=== PATIENT | female | born 1930 | race Caucasian/White ===

== ENCOUNTER 2017-01-29 00:02 | Inpatient (IN) | payer MEDICARE ==
[2017-01-29] MEDS ORDERED: cloNIDine 0.1 MG TAB ONE (01:05)
[2017-01-29] MEDS ORDERED: Nitroglycerin 2% Ointment 1 INCH/1 GM Packet ONE ×2 (01:05→01:12)
[2017-01-29 01:50] LABS: Troponin I Less than 0.010 ng/mL (< 0.028)
[2017-01-29] MEDS ORDERED: Acetaminophen 650 MG Suppository PR PRN (02:01)
[2017-01-29] MEDS ORDERED: Acetaminophen 325 MG TAB PO PRN (02:01)
--- NOTE | 2017-01-29 03:29 | HP ---
PRIMARY CARE PHYSICIAN: Jerrod Cardenas D.O. CHIEF COMPLAINT: Shortness of breath. HISTORY OF PRESENT ILLNESS: Ms. Velasquez is a pleasant 87-year-old lady who was seen at [facility] on 01/29/2017 after transfer from [facility]. She reports that over the last 2 days, she has been feeling short of breath. She reports that the sh ortness of breath has been gradually worsening. She reports shortness of breath with exertion. She denies orthopnea or paroxysmal nocturnal dyspnea. She denies any cough, fever, or chills. She repor ts leg swelling. She also reports that her abdomen has been getting distended over the last few week s. She denies any chest pain. She went to the emergency room at [facility]. There, she was diagnosed with new onset congestive heart failure and was transferred to this facility. REVIEW OF SYSTEMS: The following complete review of systems was negative, unless otherwise mentioned in the HPI or below: Constitutional: Weight loss or gain, sense of well-being, ability to conduct usual activities, exerc ise tolerance. Skin/Breast: Rash, itching, changes in hair growth or loss, nail changes, breast lumps, tenderness, swelling, nipple discharge. Eyes: Vision, double vision, tearing, blind spots, pain. ENT/Mouth: Headaches (location, time of onset, duration, precipitating factors), vertigo, lightheade dness, injury. Vision, double vision, tearing, blind spots, pain, nose bleeding, colds, obstruction, discharge, dental difficulties, gingival bleeding, dentures, neck stiffness, pain, tenderness, masses in thyroid or other areas. Cardiovascular: Precordial pain, substernal distress, palpitations, syncope, dyspnea on exertion, or thopnea, nocturnal paroxysmal dyspnea, edema, cyanosis, hypertension, heart murmurs, varicosities, ph lebitis, claudication. Respiratory: Pain, shortness of breath, wheezing, stridor, cough, hemoptysis, fever or night sweats. Gastrointestinal: Poor appetite, dysphagia, indigestion, abdominal pain, heartburn, eructation, naus ea, vomiting, hematemesis, jaundice, constipation, or diarrhea, abnormal stools (jose-colored, tarry, bloody, greasy, foul smelling), flatulence, hemorrhoids, recent changes in bowel habits. Genitourinary: Urgency, frequency, dysuria, nocturia, hematuria, polyuria, oliguria, unusual (or yenny nge in) color of urine, stones, hesitancy, change in size of stream, dribbling, acute retention or in continence, libido, potency. Musculoskeletal: Pain, swelling, redness or heat of muscles or joints, limitation, of motion, muscul ar weakness, atrophy, cramps. Neurologic/Psychiatric: Convulsions, paralyses, tremor, incoordination, paresthesias, difficulties w ith memory of speech, sensory or motor disturbances, or muscular coordination (ataxia, tremor), emoti onal problems, anxiety, depression, previous psychiatric care, unusual perceptions, hallucinations. Allergy/Immunologic: Skin rash, anemia, bleeding tendency, polydipsia, polyuria, intolerance to heat or cold. PAST MEDICAL HISTORY: Significant for coronary artery disease status post coronary artery bypass gra ft, sick sinus syndrome, status post pacemaker placement, hypertension, dyslipidemia, gastroesophagea l reflux disease, and anxiety disorder. PAST SURGICAL HISTORY: Significant for coronary artery bypass graft surgery, pacemaker placement, an d laminectomy. FAMILY HISTORY: No family history of premature coronary artery disease. SOCIAL HISTORY: The patient lives independently. She denies tobacco use, alcohol use or recreationa l drug use. CODE STATUS: I discussed her code status. She is FULL CODE. Her nephew Berhane is the surrogate me dical decision maker. ALLERGIES: PENICILLIN. CURRENT MEDICATIONS: Include omeprazole 40 mg 2 times a day, simvastatin 40 mg daily, potassium 10 m Eq daily, furosemide 20 mg as needed, aspirin 81 mg daily, alprazolam 0.5 mg as needed, Multaq 400 mg 2 times a day, losartan/hydrochlorothiazide 100/12.5 mg daily, Apresoline 25 mg 3 times a day, prami pexole 0.25 mg daily. PHYSICAL EXAMINATION: GENERAL: On examination, Ms. Velasquez is awake and alert, not in acute distress. VITAL SIGNS: Blood pressure is 165/68, pulse is 61. She is breathing at rate of 24 and saturating 9 6% on room air. She is afebrile. HEENT: Eyes: No scleral icterus, no conjunctival pallor. ENT: Moist mucosal membranes, no orophar yngeal erythema or exudates. NECK: She has jugular venous distention. No thyromegaly, trachea is midline. RESPIRATORY: Accessory muscles of breathing are not active. Chest wall movements are symmetric bila terally. Lung examination reveals bibasilar crackles. CARDIOVASCULAR: S1 and S2 are heard, regular. Peripheral pulses are palpable. No carotid bruit, no pericardial rub. ABDOMEN: Distended, nontender, bowel sounds heard, no hepatomegaly, no splenomegaly. NEUROLOGIC: Cranial nerves II-XII are intact, deep tendon reflexes are 2+. MUSCULOSKELETAL: Power is 5/5 in all 4 extremities. She has bilateral leg edema. SKIN: She has skin tags over the neck. PSYCHIATRIC: Normal mood, normal affect, patient is oriented to person, place, and time. LYMPHATIC: No cervical lymphadenopathy. LABORATORY DATA: Ms. Velasquez's labs and investigations were reviewed. I reviewed her electrocardiogra m, which shows electronic atrial paced rhythm, no ST changes to suggest an acute coronary syndrome. I also reviewed her chest x-ray, which shows pulmonary venous congestion. No pleural effusions. Lab oratory investigations show normal white count, normal hemoglobin, normal platelet count, normal sodi um, decreased potassium of 3.3, normal creatinine of 0.92, elevated blood urea nitrogen of 28, normal troponin I, elevated BNP of 588.5, normal liver profile. ASSESSMENT AND PLAN: Ms. Velasquez is a pleasant 87-year-old lady who was seen at [facility] on 01/29/2017. Her problem list includes: 1. Shortness of breath: Most likely secondary to congestive heart failure. 2. Congestive heart failure: She does not have a history of congestive heart failure. We will admi t her to the hospital and treat with diuretics. We will monitor on telemetry. We will consult Cardi ology Service. We will check 2D echocardiogram and interrogate her pacemaker. 3. Hypokalemia: Replace potassium. 4. Hypertension: Monitor vital signs, titrate antihypertensives as needed. 5. Gastroesophageal reflux disease: Appears stable. Many thanks for allowing me to participate in your patient's care. Please feel free to contact me wi th any questions or concerns. LEVEL OF RISK: High. LEVEL OF COMPLEXITY: High.
[2017-01-29] MEDS ORDERED: Furosemide 20 MG TAB PO PRN (04:33)
[2017-01-29] MEDS ORDERED: ALPRAZolam 0.5 MG TAB PO PRN (04:33)
[2017-01-29 05:22] LABS: #Basophils 0.1 thou/uL (0.0-0.2); #Eosinphils 0.2 thou/uL (0.0-0.7); #Lymphocytes 2.5 thou/uL (1.20-3.40); #Monocytes 0.8 thou/uL (0.11-0.59); #Neutrophils 5.5 thou/uL (1.40-6.50); %Basophils 0.7 % (0.0-1.0); %Eosinophils 1.8 % (0.0-10.0); %Lymphocytes 28.3 % (21.0-51.0); %Monocytes 8.4 % (0.0-10.0); Hematocrit 36.5 % (36.0-47.0); Mean Platelet Volume 7.9 fL (7.4-10.4); Red Blood Cell (RBC) Count 3.91 mill/uL (4.20-5.40)
[2017-01-29 05:46] LABS: Troponin I 0.014 ng/mL (< 0.028)
[2017-01-29 05:55] LABS: Anion Gap 12 mmol/L (10-20); BUN (Urea Nitrogen) 25 mg/dL (9.8-20.1); Calc. Creatinine Clearance 0 mL/min (70-130); Calcium 9.3 mg/dL (7.8-10.44); Carbon Dioxide 29 mmol/L (23-31); Chloride 104 mmol/L (98-107); Estimated GFR-MDRD 67
[2017-01-29] MEDS: Potassium Chloride 20 MEQ TAB PO SCH ×2 (06:28→10:09)
[2017-01-29 07:28] VITALS: BMI 28.3
[2017-01-29] MEDS: Pramipexole Di-HCl 0.25 MG TAB PO SCH (08:40)
[2017-01-29] MEDS: Dronedarone HCl 400 MG TAB PO SCH ×2 (08:40→17:16)
[2017-01-29] MEDS: Furosemide 40 MG/4 ML VIAL SLOW IVP SCH ×2 (08:40→14:43)
[2017-01-29] MEDS: hydrALAZINE 25 MG TAB PO SCH ×3 (08:41→20:34)
[2017-01-29] MEDS: Losartan Potassium 25 MG TAB PO SCH (08:41)
[2017-01-29] MEDS: Hydrochlorothiazide 25 MG TAB PO SCH (08:41)
[2017-01-29] MEDS: Aspirin 81 mg Enteric Coated Tablet PO SCH (08:41)
[2017-01-29] MEDS: Sodium Chloride 0.9% 10 ML ONE ×2 (08:48→20:35)
[2017-01-29] MEDS: Enoxaparin Sodium 40 MG/0.4 ML SYRINGE SC SCH (08:48)
--- NOTE | 2017-01-29 10:08 | PDOC.PN ---
- Subjective Encounter Start Date: 01/29/17 Encounter Start Time: 10:06 Ms. Velasquez was seen today in follow-up of CHF exacerbation. She says she has gotten rid of quite a bit of fluid last night, and is breathing better. She never experienced chest pain. - Objective Resuscitation Status: Resuscitation Status FULL:Full Resuscitation MAR Reviewed: Yes Vital Signs & Weight: Vital Signs (12 hours) Temp Pulse Resp BP Pulse Ox 01/29/17 07:38 97.9 F 75 20 176/73 H 95 01/29/17 03:01 98.3 F 60 18 95 01/29/17 02:40 97.7 F 66 18 166/67 H 97 Weight Weight 150 lb 3.2 oz Result Diagrams: 01/29/17 04:26 01/29/17 04:26 Phys Exam - Physical Examination HEENT: PERRLA Respiratory: no wheezing, no rales, clear to auscultation bilateral Cardiovascular: RRR, no significant murmur, no rub Gastrointestinal: soft, non-tender, positive bowel sounds Musculoskeletal: edema present trace pedal edema Dx/Plan (1) Acute exacerbation of CHF (congestive heart failure) Code(s): I50.9 - HEART FAILURE, UNSPECIFIED Status: Acute (2) Coronary artery disease Code(s): I25.10 - ATHSCL HEART DISEASE OF [place] CORONARY ARTERY W/O ANG PCTRS Status: Acute (3) Hypertension Code(s): I10 - ESSENTIAL (PRIMARY) HYPERTENSION Status: Acute - Plan * Acute CHF exacerbation- she has diuresed well overnight. Echo is pending * Await Cardiology input as well * HTN- blood pressure - continue her home medications, and will monitor the trend * CAD- stable * Hypokalemia- replace K+.
--- NOTE | 2017-01-29 14:14 | CON ---
DATE OF CONSULTATION: 01/29/2017 REASON FOR CONSULTATION: Acute on chronic congestive heart failure. PRIMARY CARE PROVIDER: Dr. Quintana. HISTORY OF PRESENT ILLNESS: Ms. Velasquez is a very pleasant 87-year-old woman, who states over the last several days, she has had increased history of shortness of breath. Shortness of breath has been no shobha over the last few days. She also complains of lower extremity edema in addition to abdominal dis tention. No chest pain or pressure noted. PAST MEDICAL HISTORY: 1. CAD status post bypass surgery. 2. Sick sinus syndrome status post pacemaker. 3. Hypertension. 4. Hyperlipidemia. 5. Acid reflux. 6. Anxiety disorder. PAST SURGICAL HISTORY: Laminectomy. HOME MEDICATIONS: Include, potassium, simvastatin, tramadol, meloxicam, losartan/hydrochlorothiazide , Lasix, Multaq, atenolol, aspirin, and Xanax. ALLERGIES: PENICILLIN. SOCIAL HISTORY: No current tobacco or alcohol use. REVIEW OF SYSTEMS: A 10-point review of systems is reviewed and as above, otherwise negative. PHYSICAL EXAMINATION: GENERAL: The patient is a pleasant female who is in no acute distress. The patient appears her stat ed age. VITAL SIGNS: Blood pressure 140/65, pulse 61, and temperature 98.1. NEUROLOGIC: The patient is alert and oriented times 3 with no focal neurologic deficits. HEENT: Sclerae without icterus. Mouth has moist mucous membranes with normal pallor. NECK: No JVD. Carotid upstroke brisk. No bruits bilaterally. LUNGS: Crackles noted bilaterally. BACK: No scoliosis or kyphosis. CARDIAC: Regular rate and rhythm with normal S1 and S2. No S3 or S4 noted. No significant rubs, murmurs, thrills, or gallops noted throughout the precordium. PMI is not displa geovany. There is no parasternal heave. ABDOMEN: Soft, nontender, nondistended. No peritoneal signs present. No hepatosplenomegaly. No abn ormal striae. EXTREMITIES: 2+ femoral and 2+ dorsalis pedis pulses. No cyanosis or clubbing. 1-2+ pitting edema. SKIN: No gross abnormalities. PERTINENT LABORATORY DATA: Hemoglobin 12.0, potassium 2.9, creatinine 0.81. EKG shows paced rhythm. IMPRESSION: 1. Acute on chronic diastolic heart failure. 2. Coronary artery disease. 3. Status post bypass surgery. RECOMMENDATIONS: 1. Review echo. 2. Continue Lasix. 3. Routing Clerk on dietary indiscretion. 4. Interrogate pacemaker. 5. Continue Lasix IV as prescribed.
[2017-01-29] MEDS: Potassium Chloride 10 MEQ TAB PO PRN (14:43)
[2017-01-29] MEDS ORDERED: Atorvastatin Calcium 20 MG TAB PO SCH (21:00)
[2017-01-30] MEDS: Furosemide 40 MG/4 ML VIAL SLOW IVP SCH ×2 (05:31→15:54)
[2017-01-30 06:54] LABS: Anion Gap 13 mmol/L (10-20); BUN (Urea Nitrogen) 34 mg/dL (9.8-20.1); Calc. Creatinine Clearance 31 mL/min (70-130); Calcium 8.9 mg/dL (7.8-10.44); Carbon Dioxide 27 mmol/L (23-31); Chloride 104 mmol/L (98-107); Estimated GFR-MDRD 38
[2017-01-30] MEDS ORDERED: Sodium Chloride 0.9% 10 ML ONE (07:22)
[2017-01-30] MEDS: Dronedarone HCl 400 MG TAB PO SCH (08:08)
[2017-01-30] MEDS: Aspirin 81 mg Enteric Coated Tablet PO SCH (08:10)
[2017-01-30] MEDS: Enoxaparin Sodium 40 MG/0.4 ML SYRINGE SC SCH (08:10)
[2017-01-30] MEDS: Hydrochlorothiazide 25 MG TAB PO SCH (08:11)
[2017-01-30] MEDS: Potassium Chloride 10 MEQ TAB PO PRN (08:12)
[2017-01-30] MEDS: Losartan Potassium 25 MG TAB PO SCH (08:12)
[2017-01-30] MEDS: Pramipexole Di-HCl 0.25 MG TAB PO SCH (08:14)
--- NOTE | 2017-01-30 09:03 | PDOC.PN ---
- Subjective Encounter Start Date: 01/30/17 Encounter Start Time: 09:01 Ms. Velasquez was seen today in follow-up of CHF exacerbation. She says she is breathing better and has no complaints. She admits to a little bit of dietary indiscretion. - Objective Resuscitation Status: Resuscitation Status FULL:Full Resuscitation MAR Reviewed: Yes Vital Signs & Weight: Vital Signs (12 hours) Temp Pulse Resp BP Pulse Ox 01/30/17 07:58 98.2 F 61 20 139/64 97 01/30/17 04:00 98.6 F 62 18 112/56 L Weight Weight 152 lb 8 oz I&O: 01/29/17 01/30/17 01/31/17 06:59 06:59 06:59 Intake Total 1190 Output Total 1500 Balance -310 Result Diagrams: 01/29/17 04:26 01/30/17 05:05 Phys Exam - Physical Examination HEENT: PERRLA Respiratory: no wheezing, no rales, no rhonchi, clear to auscultation bilateral Cardiovascular: RRR, no significant murmur Gastrointestinal: soft, non-tender, positive bowel sounds Musculoskeletal: edema present trace pedal edema Dx/Plan (1) Acute exacerbation of CHF (congestive heart failure) Code(s): I50.9 - HEART FAILURE, UNSPECIFIED Status: Acute (2) Coronary artery disease Code(s): I25.10 - ATHSCL HEART DISEASE OF [place] CORONARY ARTERY W/O ANG PCTRS Status: Acute (3) Hypertension Code(s): I10 - ESSENTIAL (PRIMARY) HYPERTENSION Status: Acute - Plan * Acute Diastolic heart failure- patient is clinically improved. Her volume status has improved * Echo results noted, patient has preserved LV- EF * Sodium intake was discussed, as well as monitoring fluid intake * Further recommendations as per Cardiology * HTN- blood pressure is stable * CAD- stable * Continue to replace K+ * Possible home soon.
[2017-01-30] MEDS ORDERED: Potassium Chloride 20 MEQ TAB PO SCH (09:15)
[2017-01-30] MEDS: hydrALAZINE 25 MG TAB PO SCH ×2 (09:59→15:54)
[2017-01-30 15:44] VITALS: BP 146/67; TEMP 97.9
--- NOTE | 2017-01-30 16:46 | PDOC.CTH ---
Cardiology Progress Note - Subjective She is doing well. Breathing at baseline. - Objective Vital Signs Temp Pulse Pulse Pulse Resp BP BP 01/30/17 15:43 97.9 F 64 15 01/30/17 12:15 98.1 F 62 18 01/30/17 09:59 60 108/52 L 01/30/17 09:55 88 60 136/63 01/30/17 07:58 98.2 F 61 20 BP BP BP Pulse Ox Pulse Ox Pulse Ox 01/30/17 15:43 146/67 H 94 L 01/30/17 12:15 100/53 L 97 01/30/17 09:59 01/30/17 09:55 108/52 L 96 97 01/30/17 07:58 139/64 97 Weight 152 lb 8 oz 01/29/17 01/30/17 01/31/17 06:59 06:59 06:59 Intake Total 1190 Output Total 1500 Balance -310 - Physical Examination General/Neuro: alert & oriented x3, NAD Neck: no JVD present Lungs: CTA, unlabored respirations Heart: RRR Abdomen: NT/ND Extremities: + edema B (none) - Telemetry Telemetry Rhythm: NSR - Labs Result Diagrams: 01/29/17 04:26 01/30/17 05:05 Troponin/CKMB CK-MB (CK-2) 2.4 ng/mL (0-6.6) 01/29/17 01:16 Troponin I 0.014 ng/mL (< 0.028) 01/29/17 04:26 - Assessment/Plan 1. Acute on chronic diastolic dysfunction. 2. CAD 3. S/P CABG PLAN: - July discharge home. - Follow up with Dr. Quintana as previously scheduled.
--- NOTE | 2017-01-30 23:32 | DIS ---
PRIMARY CARE PHYSICIAN: Dr. Kevin Cardenas. DATE OF ADMISSION: 01/29/2017 DATE OF DISCHARGE: 01/30/2017 DISCHARGE DISPOSITION: Home. PRIMARY DISCHARGE DIAGNOSES: 1. Acute diastolic heart failure. 2. History of coronary artery disease. 3. Hypertension. 4. Dyslipidemia. 5. Gastroesophageal reflux disease. 6. Sick sinus syndrome. DISCHARGE MEDICATIONS: There is no significant change in her medications. She is to continue Zocor 40 mg at bedtime, pramipexole 0.25 mg daily, Klor-Con 10 mEq daily, omeprazole 20 mg twice a day, [place]/hydrochlorothiazide one tablet daily, Apresoline 25 mg t.i.d., furosemide 20 mg daily, Multaq 4 00 mg twice a day, aspirin 81 mg daily, and alprazolam 0.5 mg at bedtime as needed. PROCEDURES DONE DURING ADMISSION: The patient had an echocardiogram in which the ejection fraction w as estimated at 50% to 55%. There was some E to A flow reversal suggestive of diastolic dysfunction. CODE STATUS: FULL CODE. ALLERGIES: PENICILLIN. HOSPITAL COURSE: Ms. Velasquez is a pleasant 87-year-old female who was admitted with respiratory distre ss. She was found to be volume overloaded as a result of diastolic dysfunction. This was determined by echocardiogram. She was seen by Cardiology during her hospital stay and there was no recommended change in medications. She was instructed to monitor her weight and get a digital scale and if her weight increased significantly then she was to give herself an additional Lasix. She was also recomm ended to follow up in the Heart Failure Clinic. At the time of discharge, the patient was doing much better, ambulating without difficulty and without any complaints and is subsequently being discharge d home.
== END 2017-01-30 16:26 | disposition home or self-care (01) | DRG 293 ==
LOC: ERS 00:02 → 2NO 01:07
PROVIDERS: ADMIT Internal Medicine; ATTEND Internal Medicine
DX: I11.0 Hypertensive heart disease with heart failure (principal); I49.5 Sick sinus syndrome; Z95.1 Presence of aortocoronary bypass graft; I25.10 Atherosclerotic heart disease of native coronary artery without angina pectoris; I50.33 Acute on chronic diastolic (congestive) heart failure; Z95.0 Presence of cardiac pacemaker; E78.5 Hyperlipidemia, unspecified; K21.9 Gastro-esophageal reflux disease without esophagitis; F41.9 Anxiety disorder, unspecified; E87.6 Hypokalemia; Z88.0 Allergy status to penicillin
CPT/HCPCS: 36415; 80048; 82553; 84484; 85025; 93306; 93798; 99285; A4216; J1650; J1940

== ENCOUNTER 2017-10-25 16:03 | Inpatient (IN) | payer MEDICARE ==
[2017-10-25 17:19] LABS: ALT (SGPT) 14 U/L (8-55); AST (SGOT) 12 U/L (5-34); Albumin 4.1 g/dL (3.4-4.8); Alkaline Phosphatase 89 U/L (40-150); Anion Gap 13 mmol/L (10-20); BUN (Urea Nitrogen) 57 mg/dL (9.8-20.1); Bilirubin, Total 0.4 mg/dL (0.2-1.2); Calc. Creatinine Clearance 0 mL/min (70-130); Carbon Dioxide 17 mmol/L (23-31); Chloride 113 mmol/L (98-107); Estimated GFR-MDRD 27; Glucose 87 mg/dL (83-110); Protein, Total 7.1 g/dL (6.0-8.3); Sodium 136 mmol/L (136-145)
[2017-10-25 17:25] LABS: Potassium 6.6 mmol/L (3.5-5.1)
--- NOTE | 2017-10-25 19:29 | HP ---
DATE OF ADMISSION: 10/25/2017 PRIMARY CARE PHYSICIAN: Listed as Jerrod Cardenas D.O. TIME OF SERVICE: 1700 CHIEF COMPLAINT: Weakness. HISTORY OF PRESENT ILLNESS: Ms. Velasquez is a pleasant 87-year-old female with a history of coronary ar dennys disease status post WI in the past, CHF with pacemaker placement, GERD, hyperlipidemia and hyper tension. She presented to an outside Emergency Department for what amounts to an acute onset of weak ness. The patient today went outside to turn her water sprinkler off and just felt like her legs are getting weak. She just had to sit down on the grass. She denies any syncope or presyncope. No diz ziness or vertigo. No loss of consciousness, no injury. She weighs herself every morning after shahrzad g to the restroom. She normally weighs 144-145, but today weighed 141 and has felt fairly weak and i ncreased in frequency for the last 3 days. Workup in the outside Emergency Department showed a creatinine elevated and a potassium of 6.2. She was subsequently transferred to our facility for further workup and evaluation. The patient arrived in our Emergency Department, vitals were okay. Repeat potassium was 6.6, creatin ine 1.75. Workup in 01/2017 showed a creatinine of 0.8 and 1.33. She denies any chest pain or shortness of breath. No nausea or vomiting. No diarrhea or constipatio n. No other complaints. PAST MEDICAL HISTORY: 1. Coronary artery disease. 2. Hypertension. 3. Hyperlipidemia, status post pacemaker placement. 4. Chronic kidney disease stage 2. 5. Chronic systolic congestive heart failure. HOME MEDICATIONS: 1. Xanax 0.25 mg p.o. p.r.n. anxiety. 2. Aspirin 81 mg daily. 3. Clonidine 0.1 mg p.o. p.r.n. 4. Atenolol 100 mg p.o. daily. 5. Omeprazole 20 mg p.o. daily. 6. Pramipexole 0.25 mg p.o. daily. 7. Multaq 400 mg p.o. b.i.d. 8. Apresoline 50 mg p.o. t.i.d. 9. Pravastatin 20 mg p.o. at bedtime. 10. Losartan 50 mg p.o. daily. 11. Aldactone 50 mg daily. 12. Spironolactone 25 mg daily. 13. Lasix 20 mg daily. ALLERGIES: PENICILLIN caused a rash long time ago. SOCIAL HISTORY: Negative for alcohol, tobacco or drugs. FAMILY HISTORY: Negative for clotting or bleeding disorder. No immune dysfunction. PAST SURGICAL HISTORY: Includes back surgery, right knee replacement, pacemaker implantation, mitchell ry artery bypass grafting x3 vessels remotely. REVIEW OF SYSTEMS: All systems reviewed and negative except as stated as per HPI. PHYSICAL EXAMINATION: VITAL SIGNS: Temperature current 98.9, pulse 60, blood pressure 136/54, respiratory rate 20, O2 sat 97% on room air. GENERAL: She is awake. She is alert. She is oriented x3. Well-developed, well-nourished, thin bhumi earing white female, appears to be in no acute distress. HEENT: Normocephalic, atraumatic. Pupils equal, round and reactive to light bilaterally. Mucous me mbranes are moist. No visible lesions. No thrush. NECK: Supple. She has no lymphadenopathy, JVD or thyromegaly. LUNGS: Clear. She has good air movement. Symmetrical chest excursion. No wheezes, no rales, no rh onchi. CARDIOVASCULAR: She has a normal S1, S2. She has no S3 or S4. She has a 2-3/6 systolic ejection mu rmur, best heard at the left upper sternal border. ABDOMEN: Soft. It is nontender, nondistended. No CVA tenderness. No suprapubic tenderness. EXTREMITIES: No cyanosis, no clubbing, no edema. Cannot palpate distal pulses. Feet are warm. SKIN: Warm, moist and well perfused. Capillary refill less than 2 seconds. MUSCULOSKELETAL: Normal to inspection. Large joints appear normal. There is no evidence of inflamm ation or palpable effusion. NEUROLOGIC: Cranial nerves II-XII are grossly intact. She has no focal neurologic deficit. LABORATORY DATA: Sodium is 136, potassium 6.6 here, chloride 113, bicarbonate 17, BUN 57, creatinine 1.75, glucose of 87, calcium 9.0. Liver functions completely within normal limits. CBC showed a white count of 13.0, hemoglobin of 11.7, hematocrit 31.3 and platelet count is 213,000 w ith a fairly normal differential. Urinalysis was normal. IMAGING STUDIES: None. ASSESSMENT AND PLAN: 1. Acute kidney injury, likely secondary to dehydration. We will continue IV fluids at 125 per hour . 2. Hyperkalemia secondary to acute kidney injury. She did receive glucose plus insulin, neb treatme nts, EKG was negative for changes, so did not receive calcium gluconate. Potassium here is slightly higher. Continue IV fluids and ilan with Lasix. We will also give her some Kayexalate. Repeat lab s in the morning. 3. Hypertension, essential. We will hold home medications at present. 4. Acute kidney injury. We will add p.r.n. medicines as needed. 5. Hyperlipidemia. Continue home medications. 6. History of coronary artery disease, status post myocardial infarction and coronary artery bypass graft in the past, currently asymptomatic. We will trend out her cardiac biomarkers.
[2017-10-25] MEDS ORDERED: Ondansetron HCl/PF 4 MG/2 ML Vial IVP PRN (20:19)
[2017-10-25] MEDS ORDERED: Acetaminophen 650 MG Suppository PR PRN (20:19)
[2017-10-25] MEDS ORDERED: Acetaminophen 325 MG TAB PO PRN (20:19)
[2017-10-25] MEDS ORDERED: Ondansetron ODT 4 MG TAB PO PRN (20:19)
[2017-10-25] MEDS ORDERED: Enoxaparin Sodium 30 MG/0.3 ML SYRINGE SC SCH (20:30)
[2017-10-25] MEDS ORDERED: Famotidine 20 MG TAB PO SCH ×2 (21:00→23:15)
[2017-10-25 22:02] VITALS: BMI 26.6
[2017-10-25] MEDS ORDERED: cloNIDine 0.1 MG TAB PO PRN (23:02)
[2017-10-25] MEDS ORDERED: ALPRAZolam 0.25 MG TAB PO PRN (23:02)
[2017-10-25] MEDS ORDERED: Atenolol 50 MG TAB PO SCH (23:15)
[2017-10-25] MEDS ORDERED: Pravastatin Sodium 20 MG TAB PO SCH (23:15)
[2017-10-25] MEDS ORDERED: Dronedarone HCl 400 MG TAB PO SCH (23:15)
[2017-10-25] MEDS ORDERED: hydrALAZINE 25 MG TAB PO SCH (23:15)
[2017-10-25 23:48] LABS: Potassium 6.7 mmol/L (3.5-5.1)
[2017-10-25] MEDS ORDERED: Calcium Gluconate 4.6 MEQ in Sodium Chloride 0.9% 100 ML IVPB SCH (23:54)
[2017-10-25] MEDS ORDERED: Dextrose 50% Abboject 50 ML SYRINGE SLOW IVP PRN (23:55)
[2017-10-26] MEDS: Sodium Chloride 0.9% 1,000 ML IV SCH ×5 (00:38→17:42)
[2017-10-26] MEDS: Albuterol Sulfate 1.25 MG/3 ML NEB NEB SCH ×3 (01:18→03:45)
[2017-10-26 05:39] LABS: #Eosinphils 0.1 thou/uL (0.0-0.7); #Lymphocytes 2.6 thou/uL (1.20-3.40); #Monocytes 0.6 thou/uL (0.11-0.59); %Basophils 0.4 % (0.0-1.0); %Eosinophils 1.2 % (0.0-10.0); %Lymphocytes 24.6 % (21.0-51.0); %Monocytes 5.7 % (0.0-10.0); Hemoglobin 10.8 g/dL (12.0-16.0); Mean Corpuscular HGB CONC 33.8 g/dL (32.0-36.0); Mean Corpuscular Volume 94.7 fL (78.0-98.0); Mean Platelet Volume 7.4 fL (7.4-10.4); Platelet Count 190 thou/uL (130-400); RBC Distribution Width 12.6 % (11.5-14.5); Red Blood Cell (RBC) Count 3.38 mill/uL (4.20-5.40); White Blood Cell (WBC) Count 10.4 thou/uL (4.8-10.8)
[2017-10-26 05:58] LABS: Anion Gap 12 mmol/L (10-20); BUN (Urea Nitrogen) 47 mg/dL (9.8-20.1); Calc. Creatinine Clearance 28 mL/min (70-130); Carbon Dioxide 17 mmol/L (23-31); Chloride 117 mmol/L (98-107); Estimated GFR-MDRD 36; Glucose 91 mg/dL (83-110); Potassium 5.7 mmol/L (3.5-5.1); Sodium 140 mmol/L (136-145)
[2017-10-26] MEDS: Dronedarone HCl 400 MG TAB PO SCH ×2 (08:09→18:08)
[2017-10-26] MEDS: hydrALAZINE 25 MG TAB PO SCH ×3 (08:09→21:59)
[2017-10-26] MEDS: Aspirin 81 mg Enteric Coated Tablet PO SCH (08:09)
[2017-10-26] MEDS: Furosemide 20 MG TAB PO SCH (08:10)
[2017-10-26] MEDS: Pramipexole Di-HCl 0.25 MG TAB PO SCH (08:12)
--- NOTE | 2017-10-26 10:37 | PRG ---
DATE OF SERVICE: 10/26/2017 SUBJECTIVE: Ms. Velasquez was admitted yesterday with dehydration and hyperkalemia. The patient has a history of coronary disease with previous bypass surgery and severe hypertension, w hich has been difficult to control. She received fluids. She is off the angiotensin receptor radha and the spironolactone is feeling b mihai today. OBJECTIVE: VITAL SIGNS: Her blood pressure 130/80, pulse 65, regular. LUNGS: Clear. CARDIAC: Normal S1, normal S2. ABDOMEN: Soft, nontender. EXTREMITIES: No edema. LABORATORY DATA: Potassium is 5.7, down from 6.7. EKG shows atrial paced ventricular sensed rhythm. ASSESSMENT: 1. Hypertension, essential with low blood pressure yesterday related to volume depletion. 2. Renal failure, resolving. Creatinine has gone from 1.82 down to 1.39. 3. Hyperkalemia, improving. 4. Coronary artery disease, previous bypass. 5. Pacemaker functioning normally. PLAN: 1. Agree with holding the losartan and spironolactone. In fact, would stop the spironolactone. 2. Reasonable to resume losartan as an outpatient 50 mg a day and to recheck potassium as an outpati ent. Otherwise, we will likely be difficult to control blood pressure. 3. She is continuing on a beta radha. 4. She also has paroxysmal atrial fibrillation well controlled with Multaq.
--- NOTE | 2017-10-26 15:18 | PDOC.PN ---
- Subjective Encounter Start Date: 10/26/17 Encounter Start Time: 14:00 Pt feeling better, no SOb, no N/V/d/C. Iv infiltrated at 0700 todfay, IV fluids have been opff pending IV replacement No F/C. no CP all systems reviewed and neg x as above - Objective Resuscitation Status: Resuscitation Status DNR:Do Not Resuscitate MAR Reviewed: Yes Vital Signs & Weight: Vital Signs (12 hours) Temp Pulse Pulse Pulse Resp BP BP 10/26/17 14:39 63 151/69 H 10/26/17 12:18 77 122/60 10/26/17 11:23 97.9 F 63 17 10/26/17 09:02 63 65 135/64 10/26/17 08:09 65 130/81 10/26/17 08:00 98.4 F 65 18 10/26/17 03:45 65 18 BP BP Pulse Ox Pulse Ox 10/26/17 14:39 10/26/17 12:18 137/62 97 10/26/17 11:23 141/64 H 98 10/26/17 09:02 162/64 H 10/26/17 08:09 10/26/17 08:00 10/26/17 03:45 94 L Weight Weight 141 lb 3.2 oz I&O: 10/25/17 10/26/17 10/27/17 06:59 06:59 06:59 Intake Total 504 480 Output Total 450 Balance 54 480 Result Diagrams: 10/26/17 05:10 10/26/17 05:10 Phys Exam - Physical Examination Constitutional: NAD HEENT: PERRLA, moist MMs, sclera anicteric, oral pharynx no lesions Neck: no nodes, no JVD, supple, full ROM Respiratory: no wheezing, no rales, no rhonchi, clear to auscultation bilateral Cardiovascular: RRR, no significant murmur, no rub Gastrointestinal: soft, non-tender, no distention, positive bowel sounds Musculoskeletal: edema present Neurological: non-focal, normal sensation, moves all 4 limbs Lymphatic: no nodes Psychiatric: normal affect, A&O x 3 Skin: no rash, normal turgor, cap refill <2 seconds Dx/Plan (1) Hyperkalemia Code(s): E87.5 - HYPERKALEMIA Status: Acute (2) JOHAN (acute kidney injury) Code(s): N17.9 - ACUTE KIDNEY FAILURE, UNSPECIFIED Status: Acute (3) Dehydration Code(s): E86.0 - DEHYDRATION Status: Acute (4) Chronic systolic CHF (congestive heart failure) Code(s): I50.22 - CHRONIC SYSTOLIC (CONGESTIVE) HEART FAILURE Status: Chronic (5) Coronary artery disease Code(s): I25.10 - ATHSCL HEART DISEASE OF [place] CORONARY ARTERY W/O ANG PCTRS Status: Chronic Qualifiers: Coronary Disease-Associated Artery/Lesion type: [place] artery [place] vs. transplanted heart: [place] heart Associated angina: without angina Qualified Code(s): I25.10 - Atherosclerotic heart disease of [place] coronary artery without angina pectoris (6) Hypertension Code(s): I10 - ESSENTIAL (PRIMARY) HYPERTENSION Status: Chronic Qualifiers: Hypertension type: essential hypertension Qualified Code(s): I10 - Essential (primary) hypertension - Plan cont current plan of care, plan discussed w/ family, PT/OT * .recheck BMP, replace IV fluids and lytes as needed, AM labs. change ot admit inpatient, anticipate discharg ein AM. * * Cr better, K+ down to 5.7
[2017-10-26 15:34] LABS: Anion Gap 13 mmol/L (10-20); BUN (Urea Nitrogen) 41 mg/dL (9.8-20.1); Calc. Creatinine Clearance 28 mL/min (70-130); Calcium 8.6 mg/dL (7.8-10.44); Carbon Dioxide 17 mmol/L (23-31); Chloride 112 mmol/L (98-107); Estimated GFR-MDRD 36; Glucose 128 mg/dL (83-110); Potassium 5.2 mmol/L (3.5-5.1); Sodium 137 mmol/L (136-145)
[2017-10-26] MEDS ORDERED: Pravastatin Sodium 20 MG TAB PO SCH (21:00)
[2017-10-26] MEDS ORDERED: Atenolol 50 MG TAB PO SCH (21:00)
[2017-10-27] MEDS: Sodium Chloride 0.9% 1,000 ML IV SCH (04:13)
[2017-10-27 04:54] LABS: #Basophils 0.1 thou/uL (0.0-0.2); #Eosinphils 0.1 thou/uL (0.0-0.7); #Lymphocytes 2.4 thou/uL (1.20-3.40); #Monocytes 0.6 thou/uL (0.11-0.59); #Neutrophils 6.7 thou/uL (1.40-6.50); %Basophils 0.6 % (0.0-1.0); %Eosinophils 1.5 % (0.0-10.0); %Lymphocytes 23.7 % (21.0-51.0); %Monocytes 6.4 % (0.0-10.0); %Neutrophils 67.8 % (42.0-75.0); Hemoglobin 10.7 g/dL (12.0-16.0); Mean Corpuscular HGB CONC 33.7 g/dL (32.0-36.0); Mean Corpuscular Hemoglobin 31.9 pg (27.0-31.0); Mean Corpuscular Volume 94.9 fL (78.0-98.0); Mean Platelet Volume 7.4 fL (7.4-10.4); Platelet Count 194 thou/uL (130-400); RBC Distribution Width 12.6 % (11.5-14.5); Red Blood Cell (RBC) Count 3.35 mill/uL (4.20-5.40); White Blood Cell (WBC) Count 9.9 thou/uL (4.8-10.8)
[2017-10-27 05:13] LABS: Anion Gap 10 mmol/L (10-20); BUN (Urea Nitrogen) 31 mg/dL (9.8-20.1); Calc. Creatinine Clearance 32 mL/min (70-130); Calcium 8.6 mg/dL (7.8-10.44); Carbon Dioxide 18 mmol/L (23-31); Chloride 115 mmol/L (98-107); Estimated GFR-MDRD 41; Glucose 91 mg/dL (83-110); Magnesium 2.2 mg/dL (1.6-2.6); Potassium 4.9 mmol/L (3.5-5.1); Sodium 138 mmol/L (136-145)
[2017-10-27 08:38] VITALS: TEMP 97.9
[2017-10-27] MEDS: Furosemide 20 MG TAB PO SCH (08:41)
[2017-10-27] MEDS: Dronedarone HCl 400 MG TAB PO SCH (08:41)
[2017-10-27] MEDS: Aspirin 81 mg Enteric Coated Tablet PO SCH (08:41)
[2017-10-27] MEDS: hydrALAZINE 25 MG TAB PO SCH (08:42)
[2017-10-27] MEDS: Pramipexole Di-HCl 0.25 MG TAB PO SCH (08:42)
[2017-10-27 09:45] VITALS: BP 163/70
--- NOTE | 2017-10-27 14:23 | DIS ---
DATE OF ADMISSION: 10/25/2017 DATE OF DISCHARGE: 10/27/2017 PRIMARY CARE PHYSICIAN: Jerrod Cardenas D.O. PRIMARY SIEVE MAKER: Ifeanyi Quintana M.D. DISCHARGE DIAGNOSES: 1. Acute kidney injury secondary to dehydration. 2. Moderate dehydration. 3. Hyperkalemia secondary to acute kidney injury. 4. Essential hypertension. 5. Chronic systolic congestive heart failure without acute exacerbation. 6. History of coronary artery disease without angina. CONSULTATIONS: Ifeanyi Quintana M.D., 10/26/2017. PROCEDURES: None. HISTORY AND PHYSICAL: Ms. Velasquez is an 87-year-old female known to Dr. Quintana with a known chronic sy stolic CHF and borderline adherence and poor followup, who presented to outside Emergency Department with weakness. There, she was found to have an elevated creatinine at 1.82, potassium of 6.2 and she was subsequently transferred here. On evaluation here, she was found to have a creatinine verified at 1.75 with a potassium of 6.7. Rev iew of her medicines showed she had been started on Aldactone by Dr. Quintana a couple of months ago an d did not come in for followup labs. We were subsequently called for admit. HOSPITAL COURSE: The patient was seen and examined by me in the Emergency Department, the patient wa s placed initially in observation and transitioned to inpatient. She was started on gentle IV fluids at 75 mL per hour, received those overnight until IV infiltrated in the morning of 10/26/2017. They were able to get another IV in place, but repeat labs later on 10/26/2017 showed her potassium to be down at 5.7 and her creatinine down to 1.39 range. She was continued to be watched overnight, IV ac cess was established and today her creatinine was down to 1.24 at her baseline with a potassium level of 4.9. She was seen by Dr. Quintana on 10/26/2017 who recommended stopping her Aldactone as she had become over diuresed and it can also contribute to increased potassium levels. She tolerated that we ll and was otherwise stable for discharge. DISCHARGE CONDITION: Stable. DISPOSITION: Discharged home via private vehicle. PHYSICAL EXAMINATION: The patient was seen and examined on the date of discharge. Discharge plan and disposition were discussed with the patient and her son [id number] at the bedsid e. DISCHARGE MEDICATIONS: New medications, none. Home medications to continue, 1. Xanax 0.25 mg p.o. at bedtime p.r.n. 2. Aspirin 81 mg daily. 3. Lasix 20 mg daily. 4. Atenolol 100 mg daily. 5. Clonidine 0.1 mg p.o. q.4 hours p.r.n. elevated blood pressure. 6. Multaq 400 mg p.o. b.i.d. 7. Hydralazine increased to 50 mg p.o. t.i.d. 8. Losartan 50 mg daily. 9. Omeprazole 20 mg daily. 10. Pramipexole 0.25 mg p.o. daily. 11. Pravachol 20 mg p.o. at bedtime. Medicines to stop, spironolactone. FOLLOWUP APPOINTMENTS: 1. Primary care physician within a week. 2. Dr. Quintana as schedule in February. DISCHARGE ACTIVITY: Per cardiopulmonary limits. DISCHARGE DIET: Heart healthy diet recommended.
--- NOTE | 2017-10-30 16:48 | EKG ---
Test Reason : Blood Pressure : / mmHG Vent. Rate : 060 BPM Atrial Rate : 091 BPM P-R Int : 000 ms QRS Dur : 074 ms QT Int : 400 ms P-R-T Axes : 000 -14 -04 degrees QTc Int : 400 ms Atrial-paced rhythm with prolonged AV conduction Nonspecific ST abnormality Abnormal ECG Confirmed by CORINA WILLIS, AMANUEL Parkinson ([id number]), editor at large PADMINI HOOKER ([id number]) on 10/30/2017 4:48:24 PM Referred By: Confirmed By:AMANUEL ARRIAGA MD
== END 2017-10-27 12:48 | disposition home or self-care (01) | DRG 683 ==
LOC: ERS 16:03 → 2SW 20:15 → OBSVTOIN 10-26 16:09
PROVIDERS: ADMIT Internal Medicine Infectious Disease; ATTEND Internal Medicine Infectious Disease
DX: N17.9 Acute kidney failure, unspecified (principal); I13.0 Hypertensive heart and chronic kidney disease with heart failure and stage 1 through stage 4 chronic kidney disease, or unspecified chronic kidney disease; I50.42 Chronic combined systolic (congestive) and diastolic (congestive) heart failure; Z66 Do not resuscitate; N18.4 Chronic kidney disease, stage 4 (severe); E87.5 Hyperkalemia; E86.0 Dehydration; I25.10 Atherosclerotic heart disease of native coronary artery without angina pectoris; I25.2 Old myocardial infarction; Z95.0 Presence of cardiac pacemaker; K21.9 Gastro-esophageal reflux disease without esophagitis; Z95.1 Presence of aortocoronary bypass graft; E87.6 Hypokalemia; I48.0 Paroxysmal atrial fibrillation; E78.2 Mixed hyperlipidemia
CPT/HCPCS: 36415; 80048; 83735; 85025; 93005; 94640; G8978-GP-CJ; G8979-GP-CJ; G8980-GP-CJ; G8987-GO-CJ; G8988-GO-CI; J1650; J7050